=== PATIENT | female | born 1940 | race Caucasian/White ===

== ENCOUNTER → 2017-01-02 | Outpatient (CLI) | payer MEDICARE, BC ==
[2017-01-02 12:31] LABS: EKG EKG PERFORMED
[2017-01-02 13:32] LABS: ALT 24 U/L (9-52); AST 31 U/L (14-36); Alkaline Phosphatase 86 U/L (38-126); Anion Gap 14 mmol/L; Blood Urea Nitrogen 18 mg/dL (7-17); Calcium 9.9 mg/dL (8.4-10.2); Carbon Dioxide 23 mmol/L (22-30); Chloride 101 mmol/L (98-107); Glucose 111 mg/dL (74-99); Non-African American GFR(MDRD) 54 (>60 ml/min/1.73 sqM); Potassium 3.6 mmol/L (3.5-5.1); Sodium 138 mmol/L (137-145); Total Protein 7.1 g/dL (6.3-8.2)
[2017-01-02 13:37] LABS: Partial Thromboplastin Time 22.8 sec (22.0-30.0); Prothrombin Time 10.2 sec (9.0-12.0)
[2017-01-02 13:49] LABS: Basophils # (A) 0.1 k/uL (0-0.2); Basophils % (A) 1 %; CH 32.6; CHCM 31.8; Eosinophils # (A) 0.1 k/uL (0-0.7); Eosinophils % (A) 1 %; HCT 38.1 % (34.0-46.0); HDW 2.06; HGB 12.6 gm/dL (11.4-16.0); Luc # (Auto) 0.25; Luc % (Auto) 3; Lymphocytes % (A) 12 %; MCH 33.9 pg (25.0-35.0); MCV 102.8 fL (80.0-100.0); Macrocytosis Slight; Mean Platelet Volume 8.5; Monocytes # (A) 0.5 k/uL (0-1.0); Monocytes % (A) 6 %; Neutrophils # (A) 6.5 k/uL (1.3-7.7); Neutrophils % (A) 77 %; RDW 14.1 % (11.5-15.5); WBC 8.5 k/uL (3.8-10.6); WBC (Perox) 8.53
== END | disposition home or self-care (01) ==
LOC: LABPAT 12:19
PROVIDERS: ATTEND Orthopaedic Surgery
DX: Z01.812 Encounter for preprocedural laboratory examination (principal); Z01.818 Encounter for other preprocedural examination; I49.3 Ventricular premature depolarization; R94.31 Abnormal electrocardiogram [ECG] [EKG]
CPT/HCPCS: 80053; 85025; 85610; 85730; 87070; 93005

== ENCOUNTER 2017-01-15 09:45 | Inpatient (IN) | payer MEDICARE, BC ==
[2017-01-09 11:45] VITALS: BMI 21.9
[~2017-01-15 09:45] MED LIST: ACETAMINOPHEN TAB 500 MG TAB PO ONE; DEXAMETHASONE SOD PHOSPHATE 10 MG/ML 1 ML VIAL IV ONE; MELOXICAM 7.5 MG TAB PO ONE; TRANEXAMIC ACID 1,000 MG in SODIUM CHLORIDE 0.9% 100 ML IVPB ONE; ceFAZolin 2 GM in SODIUM CHLORIDE 0.9% 100 ML IVPB ONE
[2017-01-15 10:26] VITALS: RESP 16
[2017-01-15] MEDS: LACTATED RINGERS 1,000 ML IV SCH ×2 (10:32→21:11)
[2017-01-15] MEDS: ONDANSETRON 4 MG/2 ML VIAL IVP ONE ×2 (10:33→14:02)
[2017-01-15] MEDS ORDERED: LIDOCAINE 1% 20 ML VIAL (10MG/ML) FOR IV START INTRADERMA ONE (10:33)
[2017-01-15] MEDS ORDERED: NEOSTIGMINE 1 MG/ML 10 ML VIAL ONE (12:27)
[2017-01-15] MEDS ORDERED: LIDOCAINE 1% INJ 10MG/ML (20 ML MDV) ONE (12:27)
[2017-01-15] MEDS ORDERED: fentaNYL (PF) 50 MCG/ML 2 ML AMP ONE (12:27)
[2017-01-15] MEDS ORDERED: GLYCOPYRROLATE 0.2 MG/ML 2 ML VIAL ONE (12:27)
[2017-01-15] MEDS ORDERED: PROPOFOL 10 MG/ML 20 ML VIAL IV ONE (12:27)
[2017-01-15] MEDS ORDERED: PHENYLEPHRINE-0.9% NACL SYG 1 MG/10 ML SYRINGE ONE (12:27)
[2017-01-15] MEDS ORDERED: ROCURONIUM BROMIDE 10 MG/ML 10 ML VIAL IV ONE (12:27)
[2017-01-15] MEDS ORDERED: MIDAZOLAM 2 MG/2 ML VIAL ONE (12:27)
[2017-01-15] MEDS ORDERED: SUCCINYLCHOLINE CHLORIDE 100 MG/5 ML SYR IV ONE (12:27)
[2017-01-15] MEDS ORDERED: ceFAZolin 1,000 MG in SODIUM CHLORIDE 0.9% 1,000 ML IRRIGATION ONE (12:31)
[2017-01-15] MEDS ORDERED: HYDROcodone/APAP 5-325MG 1 EACH TAB PO PRN (13:30)
[2017-01-15] MEDS ORDERED: SENNOSIDES-DOCUSATE SODIUM 1 EACH TAB PO PRN (13:30)
[2017-01-15] MEDS ORDERED: ONDANSETRON 4 MG/2 ML VIAL IVP PRN (13:30)
[2017-01-15] MEDS ORDERED: HYDROmorphone 1 MG/ML 1 ML SYRINGE IVP PRN ×3 (13:30)
--- NOTE | 2017-01-15 13:46 | P.OP ---
Date of Procedure: 01/15/17 Preoperative Diagnosis: Severe osteoarthritis left shoulder Postoperative Diagnosis: Severe osteoarthritis left shoulder Procedure(s) Performed: Left shoulder hemiarthroplasty Implants: Cardona SMR Shoulder resurfacing 42mm x 11 stem The prosthesis was press fit Anesthesia: NGOC Surgeon: Marlon Connolly [employer] Agent #1: Jennifer Rubio [employer] Agent #2: Jennifer Boyd Estimated Blood Loss (ml): 150 Pathology: other (Bone and cartilage) Condition: stable Disposition: PACU Indications for Procedure: This is a 76-year-old female who presented to my office with pain in her left shoulder secondary to severe osteoarthritis. She has failed conservative treatment and wishes to proceed with operative treatment for her pain. We discussed the surgical treatment options including hemiarthroplasty of the shoulder, total shoulder arthroplasty, and reverse shoulder arthroplasty. Due to her age, level of activity, and chronic lymphedema of her left upper extremity, I have recommended a hemiarthroplasty of her shoulder. She is agreeable to this and knows the limitations of this procedure. I did discuss the possibility of a total shoulder replacement if the arthritis on the glenoid was more severe than initially thought. Informed consent was obtained. Operative Findings: The operative findings are consistent with severe osteoarthritis of the left shoulder Description of Procedure: The patient was seen in the preoperative area, consent was reviewed, and operative site was marked with a skin marker. Patient was then brought to the operating room and given preoperative antibiotics intravenously. Patient was also given 1 g of Tranexamic acid intravenously. A general anesthetic was administered by the anesthesia department. The patient was then placed in a beachchair position with the bony prominences well-padded and the head secured. The shoulder was then prepped and draped in the usual sterile fashion. A universal timeout was then performed, which confirmed the patient's name, surgical site, ALLERGIES, and consent. A standard deltopectoral approach was performed. The skin and subcutaneous tissue was sharply dissected down to the deltoid fascia. The cephalic vein was then identified and retracted medially. The deltopectoral interval was then utilized to expose the subscapularis tendon. A retractor was then placed under the coracobrachialis tendon retracted medially, and the deltoid. The axillary nerve is palpated and protected throughout the procedure. The subscapularis tendon was then released and retracted medially. The humeral head was then exposed easily. After the humeral head was exposed, osteophytes were removed with a Ronguer. The glenoid was inspected and found to have moderate arthrosis , so I elected to proceed with a hemiarthroplasty procedure. The sizing guides were placed over the humeral head and after the appropriate size was determined, central pin was placed. The humeral head was then reamed. Next, a central hole was then drilled. The trial was then placed and found to have a secure fit. The trial was then removed, and the final implant was impacted. Shoulder was then reduced, taken through full range of motion and found to be stable. Shoulder was then irrigated with pulsatile lavage. The shoulder was then irrigated with Irrisept solution. A second dose of 1 g of Tranexamic acid was given. The subscapularis was then repaired with #1 Vicryl. The deltopectoral interval was then closed with #1 Vicryl as well. The subcutaneous tissues were closed with 2-0 Vicryl then Dermabond was placed on the skin. A sterile dressing was then applied, the patient was transported to the recovery room in an arm sling in stable condition. The legal support assistant Jennifer Rubio required due the complexity of the surgery and the need for a skilled surgical scheduler.
[2017-01-15] MEDS: HYDROmorphone 1 MG/ML 1 ML SYRINGE IVP PRN ×2 (14:02→14:16)
--- NOTE | 2017-01-15 14:30 | XR ---
EXAMINATION TYPE: XR shoulder limited LT DATE OF EXAM: 01/15/2017 2:11 PM COMPARISON: NONE HISTORY: Left shoulder replacement TECHNIQUE: Single AP view left shoulder FINDINGS: Left humeral head is been placed. Glenoid appears intact. Acromioclavicular junction appear s within normal limits. No acute fractures are evident. Surgical clips are within the axillary region . IMPRESSION: 1. No acute fractures post humeral head replacement
[2017-01-15] MEDS ORDERED: KETOROLAC 30 MG/ML 1 ML VIAL IVP ONE (14:35)
[2017-01-15 16:02] LABS: Basophils % (A) 0 %; CH 32.7; CHCM 30.6; Eosinophils % (A) 0 %; HCT 38.2 % (34.0-46.0); HDW 1.93; HGB 11.8 gm/dL (11.4-16.0); Luc # (Auto) 0.11; Luc % (Auto) 1; Lymphocytes # (A) 0.7 k/uL (1.0-4.8); Lymphocytes % (A) 8 %; MCH 32.9 pg (25.0-35.0); MCHC 30.8 g/dL (31.0-37.0); MCV 106.9 fL (80.0-100.0); Macrocytosis Moderate; Mean Platelet Volume 8.7; Monocytes # (A) 0.2 k/uL (0-1.0); Monocytes % (A) 2 %; Neutrophils # (A) 7.8 k/uL (1.3-7.7); Neutrophils % (A) 89 %; RBC 3.57 m/uL (3.80-5.40); RDW 13.8 % (11.5-15.5); WBC 8.9 k/uL (3.8-10.6); WBC (Perox) 9.59
[2017-01-15] MEDS: SODIUM CHLORIDE 0.9% 1,000 ML IV SCH (16:08)
[2017-01-15] MEDS: HYDROcodone/APAP 5-325MG 1 EACH TAB PO PRN (18:11)
[2017-01-15] MEDS: ceFAZolin 2 GM in SODIUM CHLORIDE 0.9% 100 ML IVPB SCH (20:08)
[2017-01-15] MEDS ORDERED: ALPRAZolam 0.5 MG TAB PO PRN (20:53)
[2017-01-15] MEDS ORDERED: PRAVASTATIN SODIUM 40 MG TAB PO SCH (21:00)
[2017-01-16] MEDS: SODIUM CHLORIDE 0.9% 1,000 ML IV SCH (05:54)
[2017-01-16] MEDS: ceFAZolin 2 GM in SODIUM CHLORIDE 0.9% 100 ML IVPB SCH (05:54)
[2017-01-16] MEDS ORDERED: LEVOTHYROXINE 75 MCG TAB PO SCH (06:30)
[2017-01-16] MEDS ORDERED: PANTOPRAZOLE 40 MG TABLET PO SCH (07:30)
--- NOTE | 2017-01-16 08:14 | P.DS ---
Providers Date of admission: 01/15/17 10:02 Expected date of discharge: 01/16/17 Attending physician: Marlon Connolly Consults: 01/15/17 13:30 Consult Physician Routine Consulting Provider: Tracie Brambila Consult Reason/Comments: medical management Do you want consulting provider notified?: Yes Primary care physician: Stated None - Discharge Diagnosis(es) (1) Primary osteoarthritis, left shoulder Current Visit: Yes Status: Acute Hospital Course: This is a 76-year-old female with history of left shoulder pain. She has known severe Ostreoarthritis of the left shoulder. After discussion and consideration the patient elected to proceed with surgical intervention. The patient was seen preoperatively medically cleared for surgery by Dr. Brambila. Patient was admitted to [facility] on 01/15/2017 and underwent hemiarthroplasty of the left shoulder. The procedure was performed without competitions or sequelae. The patient was seen and evaluated at bedside with Dr. Marlon Connolly on postoperative day #1. She has no new complaints at this time. Her pain is well-controlled. Dressing is clean dry and intact. This was changed at bedside. Dermabond tape intact. No erythema or drainage. She has good active range of motion at the wrist and fingers. She denies any numbness or tingling. Sensation and circulatory status was intact. The patient is orthopedically stable for discharge to home today. Pertinent Studies: Laboratory Tests 01/15/17 14:57 WBC 8.9 RBC 3.57 L Hgb 11.8 Hct 38.2 Patient Condition at Discharge: Good Plan - Discharge Summary New Discharge Prescriptions: Hydrocodone/Acetaminophen [[place] 5-325] 1 - 2 each PO Q6HR PRN #90 tab PRN Reason: Pain Sennosides-Docusate Sodium [Senokot-S] 2 tab PO DAILY #60 tablet Discharge Medication List ALPRAZolam [Xanax] 0.5 mg PO HS PRN 01/09/17 [History] Aspirin [Adult Low Dose Aspirin EC] 81 mg PO DAILY 01/09/17 [History] Cholecalciferol [Vitamin D3] 1,000 unit PO DAILY 01/09/17 [History] HYDROcodone/APAP 7.5-325MG [[place] 7.5-325] 1 tab PO Q4-6H PRN 01/09/17 [History] Levothyroxine Sodium [Synthroid] 75 mcg PO DAILY 01/09/17 [History] Losartan/Hydrochlorothiazide [Losartan-Hctz 100-25 mg Tab] 1 tab PO DAILY [History] Omeprazole 20 mg PO DAILY 01/09/17 [History] Pravastatin Sodium [Pravachol] 40 mg PO HS 01/09/17 [History] amLODIPine BESYLATE [Norvasc] 2.5 mg PO DAILY 01/09/17 [History] Hydrocodone/Acetaminophen [[place] 5-325] 1 - 2 each PO Q6HR PRN #90 tab 01/16/17 [Rx] Sennosides-Docusate Sodium [Senokot-S] 2 tab PO DAILY #60 tablet 01/16/17 [Rx] Follow up Appointment(s)/Referral(s): Marlon Connolly DO [Doctor of Osteopathic Medicine] - 2 Weeks Activity/Diet/Wound Care/Special Instructions: Ice to left shoulder Daily dressing changes. Okay to shower after 2 days without drainage Sling for comfort [facility] with questions or concerns [phone]
[2017-01-16] MEDS ORDERED: CHOLECALCIFEROL 1,000 UNIT TAB PO SCH (09:00)
[2017-01-16] MEDS ORDERED: LOSARTAN-HCTZ 50-12.5 MG 1 EACH TAB PO SCH (09:00)
[2017-01-16] MEDS ORDERED: amLODIPine 2.5 MG TAB PO SCH (09:00)
[2017-01-16] MEDS ORDERED: ASPIRIN 81 MG CHEW PO SCH (09:00)
[2017-01-16] MEDS: HYDROcodone/APAP 5-325MG 1 EACH TAB PO PRN (13:21)
[2017-01-16 15:03] VITALS: BP 96/53; PULSE 81; TEMP 98.7
== END 2017-01-16 16:35 | disposition home or self-care (01) | DRG 483 ==
LOC: 2ORMAIN 10:02 → 3SUR 13:45
PROVIDERS: ADMIT Orthopaedic Surgery; ATTEND Orthopaedic Surgery
PROC: 0RRK0JZ Replacement of Left Shoulder Joint with Synthetic Substitute, Open Approach (ICD-10-PCS; principal; 2017-01-15 11:45)
DX: M19.012 Primary osteoarthritis, left shoulder (principal); I10 Essential (primary) hypertension; Z79.82 Long term (current) use of aspirin; Z79.899 Other long term (current) drug therapy; E78.5 Hyperlipidemia, unspecified; Z88.1 Allergy status to other antibiotic agents; Z88.8 Allergy status to other drugs, medicaments and biological substances
CPT/HCPCS: 85025

== ENCOUNTER 2017-05-08 06:29 | Day surgery (SDC) | payer MEDICARE, BC ==
[2017-04-30 10:49] VITALS: BMI 20.9
[~2017-05-08 06:29] MED LIST changes: -ACETAMINOPHEN TAB 500 MG TAB PO ONE; -DEXAMETHASONE SOD PHOSPHATE 10 MG/ML 1 ML VIAL IV ONE; +LACTATED RINGERS 1,000 ML IV SCH; +LIDOCAINE 1% 20 ML VIAL (10MG/ML) FOR IV START INTRADERMA PRN; -MELOXICAM 7.5 MG TAB PO ONE; +TETRACAINE 0.5% OPHTH (PF) DROPS 4 ML BTL OP ONE; +TIMOLOL 0.5% OPHTH SOLN (PF) 0.2 ML DROPERETTE OP ONE; -TRANEXAMIC ACID 1,000 MG in SODIUM CHLORIDE 0.9% 100 ML IVPB ONE; -ceFAZolin 2 GM in SODIUM CHLORIDE 0.9% 100 ML IVPB ONE
[2017-05-08 06:49] VITALS: RESP 16; TEMP 97.7
[2017-05-08] MEDS: PHENYLEPHRINE 2.5% OPHTH DRP 2ML OP NR ×3 (06:55→07:10)
[2017-05-08] MEDS: CYCLOPENTOLATE 1% OPHTH SOLN 2 ML BTL OP ONE ×3 (06:59→07:13)
[2017-05-08] MEDS ORDERED: fentaNYL (PF) 50 MCG/ML 2 ML AMP ONE (07:36)
[2017-05-08] MEDS ORDERED: MIDAZOLAM 2 MG/2 ML VIAL ONE (07:36)
[2017-05-08] MEDS ORDERED: MOXIFLOXACIN HCL 0.5% DROPS 3 ML BTL OP ONE (07:45)
[2017-05-08] MEDS ORDERED: LIDOCAINE 1% (PF) 10MG/ML VIAL MISCELLANE ONE (07:52)
[2017-05-08] MEDS ORDERED: DUOVISC KIT (GREEN BOX) INTRAOCULA ONE (07:52)
[2017-05-08] MEDS ORDERED: BALANCED SALT IRRIG SOLN COMB2 15 ML IRRIG.SOLN INTRAOCULA ONE (07:52)
[2017-05-08] MEDS ORDERED: EPINEPHrine (PF) 0.3 ML in BALANCED SALT IRRIG SOLN COMB2 500 ML IRRIGATION ONE (07:54)
--- NOTE | 2017-05-08 08:11 | P.OP ---
Date of Procedure: 05/08/17 Preoperative Diagnosis: NS Postoperative Diagnosis: same Procedure(s) Performed: PIOL, OD Implants: PCB00 23.0 Anesthesia: MAC Surgeon: Tucker Duval Estimated Blood Loss (ml): 0 Pathology: none sent Condition: stable Disposition: same day Indications for Procedure: blurry vision Operative Findings: No complications Description of Procedure:
[2017-05-08 08:37] VITALS: BP 152/67; PULSE 100
--- NOTE | 2017-05-09 09:06 | OP ---
DATE OF SURGERY: 05/08/17 PREOPERATIVE DIAGNOSIS: Nuclear sclerosis. POSTOPERATIVE DIAGNOSIS: Nuclear sclerosis. OPERATION: Clear cornea phacoemulsification of cataract and intraocular lens implant of the right eye. ESTIMATED BLOOD LOSS: Zero. SPECIMEN TAKEN: None. NARRATIVE: After obtaining the appropriate consent, the patient was brought to the Operating Room where the patient was placed under cardiac monitoring and prepped and draped in the usual sterile manner. At the 11 oclock position, a 15 degree super sharp blade was used to create a paracentesis followed by instillation of 1% Xylocaine MPF 50:50 mix with BSS into the anterior chamber. This was followed by Duovisc to stabilize the anterior chamber. At the 9 o clock position position, a self sealing corneal flap incision was created using 2.8 mm starla keratome. A cystatome was used to initiate a continuous tear capsulorrhexis which was completed with the Utrata forceps. A Binkhorst cannula was used to hydrodissect the lens nucleus followed by hydrodelineation. Phacoemulsification of the lens was performed utilizing phacochop in 1 minute and 2 seconds at 15% power. The remaining cortical material was removed using the irrigation aspiration mode followed by additional 1% Xylocaine MPF into the anterior chamber followed by viscoelastic to stabilize the capsular bag. An JOE PZB 00 23.0 diopter posterior chamber lens was placed into the capsular bag without difficulty. The remaining viscoelastic material was removed from the anterior chamber with the irrigation/aspiration. Balanced salt solution was used to normalize the intraocular pressure. The incision was checked for watertight integrity. The patient then received two drops of 0.5% Timolol followed by two drops of Vigamox, was lightly patched and shielded in the usual manner. There were no complications from the procedure. The patient tolerated the procedure well and was returned to the recovery room in good condition. MALLORY
== END 2017-05-08 09:14 | disposition home or self-care (01) ==
LOC: OR 06:29
PROVIDERS: ATTEND Ophthalmology
DX: H25.11 Age-related nuclear cataract, right eye (principal); H52.4 Presbyopia; I10 Essential (primary) hypertension; I25.10 Atherosclerotic heart disease of native coronary artery without angina pectoris; Z91.041 Radiographic dye allergy status; Z79.82 Long term (current) use of aspirin; Z79.899 Other long term (current) drug therapy; K21.9 Gastro-esophageal reflux disease without esophagitis
CPT/HCPCS: 66984; C1780; J2250; J0171; J3010; J2001

== ENCOUNTER → 2018-03-26 | Outpatient (CLI) | payer MEDICARE, BC ==
[2018-03-26 15:05] LABS: HGB 13.5 gm/dL (11.4-16.0); MCH 31.5 pg (25.0-35.0); MCHC 32.2 g/dL (31.0-37.0); MCV 97.8 fL (80.0-100.0); Mean Platelet Volume 7.7; Platelet Count 269 k/uL (150-450); RDW 13.5 % (11.5-15.5); WBC 10.6 k/uL (3.8-10.6)
[2018-03-26 15:13] LABS: Partial Thromboplastin Time 22.5 sec (22.0-30.0); Prothrombin Time 9.6 sec (9.0-12.0)
[2018-03-26 15:22] LABS: Albumin 4.5 g/dL (3.5-5.0); Calcium 9.9 mg/dL (8.4-10.2); Potassium 3.6 mmol/L (3.5-5.1); Total Bilirubin 0.8 mg/dL (0.2-1.3)
== END | disposition home or self-care (01) ==
LOC: LABPAT 13:08
PROVIDERS: ATTEND Orthopaedic Surgery
DX: Z01.812 Encounter for preprocedural laboratory examination (principal); Z79.01 Long term (current) use of anticoagulants
CPT/HCPCS: 36415; 80053; 85027; 85610; 85730; 87070

== ENCOUNTER 2018-04-07 05:37 | Inpatient (IN) | payer MEDICARE, BC ==
[2018-03-25 10:47] VITALS: BMI 19.5
[~2018-04-07 05:37] MED LIST changes: +ACETAMINOPHEN TAB 500 MG TAB PO ONE; -LACTATED RINGERS 1,000 ML IV SCH; -LIDOCAINE 1% 20 ML VIAL (10MG/ML) FOR IV START INTRADERMA PRN; +MELOXICAM 7.5 MG TAB PO ONE; +MIDAZOLAM 2 MG/2 ML VIAL IV PRN; +ONDANSETRON 4 MG/2 ML VIAL IVP ONE; -TETRACAINE 0.5% OPHTH (PF) DROPS 4 ML BTL OP ONE; -TIMOLOL 0.5% OPHTH SOLN (PF) 0.2 ML DROPERETTE OP ONE; +TRANEXAMIC ACID 1,000 MG in SODIUM CHLORIDE 0.9% 50 ML IVPB ONE; +ceFAZolin IN SWFI 2 GM/20 ML SYRINGE IVP ONE; +fentaNYL (PF) 50 MCG/ML 2 ML AMP IV PRN
[2018-04-07] MEDS ORDERED: ROPIVACAINE 246.25 MG, EPINEPHrine 0.5 MG, KETOROLAC 30 MG, cloNIDine HCL/PF 80 MCG, WA... MISCELLANE ONE ×5 (06:37)
[2018-04-07] MEDS ORDERED: LIDOCAINE 1% 20 ML VIAL (10MG/ML) FOR IV START INTRADERMA ONE (06:39)
[2018-04-07] MEDS ORDERED: NALOXONE 0.4 MG/ML 1 ML VIAL IV PRN (07:28)
[2018-04-07] MEDS ORDERED: DIAZEPAM 5 MG TAB PO PRN (07:28)
[2018-04-07] MEDS ORDERED: ONDANSETRON 4 MG/2 ML VIAL IVP PRN (07:28)
[2018-04-07] MEDS: LACTATED RINGERS 1,000 ML IV SCH (07:28)
[2018-04-07] MEDS ORDERED: HYDROmorphone 0.5 MG/0.5 ML SYRINGE IVP PRN ×3 (07:28)
[2018-04-07] MEDS ORDERED: MAGNESIUM HYDROXIDE 2,400 MG/10 ML CUP PO PRN (07:28)
[2018-04-07] MEDS ORDERED: PHENYLEPHRINE-0.9% NACL SYG 1 MG/10 ML SYRINGE ONE (07:30)
[2018-04-07] MEDS ORDERED: SODIUM CHLORIDE 0.9% IRRIG 1,000 ML BTL IRRIGATION ONE (07:30)
[2018-04-07] MEDS ORDERED: TRANEXAMIC ACID 1,000 MG/10 ML VIAL ONE (07:30)
[2018-04-07] MEDS ORDERED: HEPARIN SODIUM,PORCINE 10,000 UNIT/ML 1 ML VIAL ONE (07:30)
[2018-04-07] MEDS ORDERED: MIDAZOLAM 2 MG/2 ML VIAL ONE (07:30)
[2018-04-07] MEDS ORDERED: SODIUM CHLORIDE 0.9% 100 ML BAG ONE (07:30)
[2018-04-07] MEDS ORDERED: fentaNYL (PF) 50 MCG/ML 2 ML AMP ONE (07:30)
[2018-04-07] MEDS ORDERED: PROPOFOL 10 MG/ML 20 ML VIAL IV ONE (07:30)
[2018-04-07] MEDS ORDERED: ceFAZolin 3,000 MG in SODIUM CHLORIDE 0.9% IRRIGATIO 3,000 ML IRRIGATION ONE (08:14)
--- NOTE | 2018-04-07 09:04 | P.OP ---
Date of Procedure: 04/07/18 Preoperative Diagnosis: Severe osteoarthritis right hip Postoperative Diagnosis: Severe osteoarthritis right hip Procedure(s) Performed: Right total hip arthroplasty with a direct anterior approach Implants: Francois and nephew Polarstem size 5 standard Francois [employer] Nephew R3, 3 hole acetabular shell, 48 mm Francois & Nephew reflection 6.5 mm cancellus screw, 20 mm 2 Francois [employer] Nephew R3, XLPE 20 acetabular liner Francois & Nephew Oxinium femoral head 32 m, +8 All components were press-fit. The articulation is Oxinium on polyethylene. Anesthesia: spinal Surgeon: Marlon Connolly Faculty Member #1: Jennifer Odom Estimated Blood Loss (ml): 125 Pathology: other (Femoral head) Condition: stable Disposition: PACU Indications for Procedure: After failure of conservative treatment we discussed the surgical and nonsurgical treatment options at length. Patient wishes to proceed with a total hip arthroplasty with a direct anterior approach. Complications specific to this procedure were discussed at length, including but not limited to infection, leg length discrepancy, dislocation, and nerve injury. Patient is aware of all these complications and informed consent was obtained Operative Findings: The operative findings are consistent with severe osteoarthritis of the right hip Description of Procedure: Patient was seen and evaluated in the preoperative area, consent was reviewed, and the surgical site was marked with a skin marker. Patient was then brought to the operating room and given prophylactic antibiotics intravenously. 1 g of Tranexamic acid was also given. A spinal anesthetic was administered by the anesthesia department. The patient was then placed on the [place] table with the bony prominences well-padded. The hip area was then prepped and draped in usual sterile fashion. A universal timeout was then performed, which confirmed the patient's name, surgical site, ALLERGIES, and procedure being performed. Next the incision site was located at 1 cm distal and 1 cm lateral to the anterior superior iliac spine. The skin and subcutaneous tissues were sharply incised. Incision was carefully dissected down to the fascia overlying the tensor fascia lisbeth muscle. This fascia was then incised in line with the incision. Next, using blunt finger dissection, the tensor fascia lisbeth muscle was dissected off its investing fascia. The muscle was then carefully retracted laterally with a cobra retractor over the lateral neck of the femur. Next, the circumflex vessels were identified and cauterized using the AquaMantis device. The anterior hip capsule was then exposed. The capsule was then opened and an inverted T fashion. Cobra retractors were then placed intracapsularly. The proximal femur was then visualized. The femoral neck was then osteotomized appropriate level above the lesser trochanter. Small amount of traction was placed with the [place] table. A small wedge of bone was then removed from the remaining femoral head. Next, using a corkscrew femoral head was easily removed from the acetabulum. On gross visual inspection, the femoral head had complete loss of articular cartilage in multiple periarticular osteophytes. Attention was then turned to the acetabulum. the acetabulum was exposed and any remaining labrum was excised. Sequential reaming of the acetabulum was performed using fluoroscopic guidance. When the appropriate size was reached, a trial was then placed. The position and fit of the trial was checked with fluoroscopy. The trial was then removed. Then, using fluoroscopic guidance, the final implant was impacted at 20 of anteversion and 40 of abduction, and fully seated in the acetabulum. 2 screws were then placed in the acetabulum. Again fluoroscopy was used to check position of the screws. Next, the liner was then impacted, with a 20 elevated liner located in the anterior superior quadrant. Component locking was confirmed. Attention was then directed to the femur. With the aid of the [place] table, the femur was externally rotated to approximately 130, extended, and abducted under the opposite leg. A side hook was then placed under the proximal femur, and the side hook elevator was used to elevate the proximal femur. Retractors were then placed. A capsular release was performed, as well as a release of the conjoined tendon, which afforded excellent visualization of the proximal femur. Next, a box osteotome was used to lateralize the proximal femur. A dredge deckhand was then used to locate the femoral canal. Sequential broaching was then performed with appropriate size which afforded excellent fixation in the proximal femur. A trial was then placed with appropriate head and neck, and the hip was gently reduced with the aid of the [place] table. Fluoroscopy was then used to check position of the components, as well as to ensure equal leg lengths. The hip was then gently dislocated and the trials were then removed. Final implants were then impacted and the hip was again reduced. Final fluoroscopic x-rays confirmed that the components were in anatomic position, as well as equal leg lengths. The hip was also taken through range of motion, and found to be stable. The hip was then copiously irrigated with antibiotic solution with pulsatile lavage. The hip was then irrigated with Irrisept solution. The soft tissues were then injected with a ropivacaine solution, which consisted of 246.25 mg of ropivacaine, 0.5 mg of epinephrine, 30 mg of Toradol, 80 g of clonidine, and 48.45 mL of sterile water, for a total of 100 mL of fluid injected. A second dose of 1 g of Tranexamic acid was also given. the fascia was then closed with 2-0 strata fix suture. The subcutaneous tissue was closed with 3-0 Vicryl. The subcuticular tissue was closed with 3-0 strata fix suture. The skin was then closed with Dermabond glue and a sterile silver dressing. The patient was then transferred to the recovery room in stable condition. The recreational assistant NOÉ Cai was required due to the complexity of surgery, and the need for skilled surgical clinical reviewer for positioning, draping, exposure, retraction, and closure of the wound.
--- NOTE | 2018-04-07 09:15 | FL ---
EXAMINATION TYPE: FL guidance operating room, XR Hip Limited RT DATE OF EXAM: 04/07/2018 CLINICAL HISTORY: Right hip arthroplasty TECHNIQUE: Fluoroscopy. COMPARISON: None. FINDINGS/IMPRESSION: Fluoroscopic guidance was provided during procedure performed by Dr. Connolly. A total of 31 seconds of fluoroscopic time was utilized during the procedure and 2 spot images was a cquired during right hip arthroplasty.
[2018-04-07] MEDS: SODIUM CHLORIDE 0.9% 1,000 ML IV SCH ×2 (09:51→23:24)
--- NOTE | 2018-04-07 10:45 | XR ---
EXAMINATION TYPE: FL guidance operating room, XR Hip Limited RT DATE OF EXAM: 04/07/2018 CLINICAL HISTORY: Right hip arthroplasty TECHNIQUE: Fluoroscopy. COMPARISON: None. FINDINGS/IMPRESSION: Fluoroscopic guidance was provided during procedure performed by Dr. Connolly. A total of 31 seconds of fluoroscopic time was utilized during the procedure and 2 spot images was a cquired during right hip arthroplasty. Right hip arthroplasty appears in normal anatomic alignment wi th overlying soft tissue swelling and subcutaneous emphysema.
--- NOTE | 2018-04-07 11:09 | P.CONS ---
History of Present Illness - Reason for Consult Consult date: 04/07/18 medical management Requesting physician: Jennifer Odom - Chief Complaint Osteoarthritis of the right hip - History of Present Illness This is an 78-year-old female patient of Dr. Brambila. Patient has a significant history of osteoarthritis of the right hip and underwent a right total hip arthroplasty with a direct anterior approach with Dr. Connolly today. Patient has a significant history of left breast cancer with chemo and radiation 15 years ago, GERD, hyperlipidemia, hypertension, osteoarthritis and thyroid disorder. Patient is currently resting comfortably in bed with minimal pain complaints at this time. Blood pressure currently running on the lower side with Systolic blood pressure in t the 90s and low 100s . Patient currently on room air with no completes the shortness of breath. Patient denies any chest pain. She denies any urinary symptoms, fever, chills, nausea, vomiting or diarrhea at this time. Med rec reviewed with patient. Will hold blood pressure medications at this time due to low blood pressure. Review of Systems Otherwise unremarkable please see HPI Past Medical History Past Medical History: Cancer, GERD/Reflux, Hyperlipidemia, Hypertension, Osteoarthritis (OA), Skin Disorder, Thyroid Disorder Additional Past Medical History / Comment(s): HX OF LEFT BREAST CANCER WITH CHEMO AND RADIATION (15 YRS AGO)., ECZEMA, LEAKY HEART VALVES, HX OF COLITIS, BACK PAIN, RIGHT HIP AND GROIN PAIN, STATES LYMPHEDEMA LEFT ARM-NO IV'S, LAB DRAWS OR BLOODPRESSURES LEFT ARM., History of Any Multi-Drug Resistant Organisms: None Reported Past Surgical History: Adenoidectomy, Appendectomy, Joint Replacement, Tonsillectomy, Tubal Ligation Additional Past Surgical History / Comment(s): LYMPH NODES LEFT AXILLA. ; L shoulder Past Anesthesia/Blood Transfusion Reactions: Motion Sickness, Postoperative Nausea & Vomiting (PONV) Additional Past Anesthesia/Blood Transfusion Reaction / Comm: PT ADOPTED-NO FAMILY HX AVAILABLE. Smoking Status: Never smoker - Past Family History Mother Family Medical History: Unable to Obtain Additional Family Medical History / Comment(s): PT ADOPTED. Medications and Allergies Home Medications Medication Instructions Recorded Confirmed Type ALPRAZolam [Xanax] 0.5 mg PO HS PRN 01/09/17 04/07/18 History Aspirin [Adult Low Dose Aspirin EC] 81 mg PO DAILY 01/09/17 04/07/18 History Cholecalciferol [Vitamin D3] 1,000 unit PO DAILY 01/09/17 04/07/18 History Levothyroxine Sodium [Synthroid] 75 mcg PO DAILY 01/09/17 04/07/18 History Losartan/Hydrochlorothiazide 1 tab PO DAILY 01/09/17 04/07/18 History [Losartan-Hctz 100-25 mg Tab] Omeprazole 20 mg PO DAILY 01/09/17 04/07/18 History Pravastatin Sodium [Pravachol] 40 mg PO HS 01/09/17 04/07/18 History amLODIPine BESYLATE [Norvasc] 5 mg PO BID 01/09/17 04/07/18 History HYDROcodone/APAP 5-325MG [[place] 1 tab PO Q4HR PRN 03/25/18 04/07/18 History 5-325] Allergies Allergy/AdvReac Type Severity Reaction Status Date / Time iodine Allergy Severe STATES Verified 04/07/18 08:02 CARDIAC EMERGENCY lactose Allergy Unknown Diarrhea Verified 04/07/18 08:02 levofloxacin Allergy Unknown RED AND Verified 04/07/18 08:02 SWELLING AT IV SITE. Physical Exam Vitals: Vital Signs Temp Pulse Resp BP Pulse Ox 04/07/18 10:00 91 18 103/59 100 04/07/18 09:45 88 18 99/55 100 04/07/18 09:30 105 H 18 97/53 98 04/07/18 09:12 97.1 F L 116 H 20 89/51 97 04/07/18 06:05 97.8 F 92 16 136/77 100 Intake and Output 04/06/18 04/07/18 04/07/18 22:59 06:59 14:59 Intake Total 1051 Output Total 125 Balance 926 Intake: IV 1051 Output: Estimated Blood Loss 125 Head normocephalic Neck supple Lungs clear to auscultation bilaterally no wheezing or crackles Heart regular rate and rhythm S1-S2, no rub or gallop Abdomen is soft nontender nondistended positive bowel sounds no hepatosplenomegaly Extremities no edema. Right hip dressing clean, dry and intact. Neuro alert and orientated to 3 Assessment and Plan Assessment: 1. Severe osteoarthritis the right hip. Status post right total hip arthroplasty with a direct anterior approach with Dr. Connolly. Currently on aspirin 325 mg by mouth twice a day per surgical services. Pain management with [place] and Dilaudid. 2. History of breast cancer 3. History of hypothyroidism. Home medication resumed 4. History of hypertension. Patient's home Norvasc and losartan/ hydrochlorothiazide currently on hold due to patient having low blood pressure postoperatively 5. History of hyperlipidemia. Home medication Pravastatin resumed Thank you for this consultation we'll continue to manage patient throughout hospital stay. Time with Patient: Greater than 30 (Greater than 60% of the total time spent in counseling and coordination of care. I performed an examination of the patient and discussed their management with the Nurse Practitioner. I have reviewed the Nurse Practitioner's notes and agree with the documented findings and plan of care)
[2018-04-07] MEDS: HYDROcodone/APAP 5-325MG 1 EACH TAB PO PRN ×2 (11:17→17:35)
[2018-04-07 11:42] LABS: Calcium 9.2 mg/dL (8.4-10.2); Potassium 3.7 mmol/L (3.5-5.1)
[2018-04-07 11:54] LABS: Basophils % (A) 0 %; Eosinophils # (A) 0.3 k/uL (0-0.7); Eosinophils % (A) 3 %; HCT 34.3 % (34.0-46.0); HGB 11.8 gm/dL (11.4-16.0); Lymphocytes # (A) 1.8 k/uL (1.0-4.8); Lymphocytes % (A) 17 %; MCH 32.2 pg (25.0-35.0); MCHC 34.3 g/dL (31.0-37.0); MCV 93.9 fL (80.0-100.0); Mean Platelet Volume 7.9; Monocytes # (A) 0.6 k/uL (0-1.0); Monocytes % (A) 6 %; Neutrophils # (A) 7.6 k/uL (1.3-7.7); Neutrophils % (A) 72 %; Platelet Count 176 k/uL (150-450); RBC 3.66 m/uL (3.80-5.40); WBC 10.6 k/uL (3.8-10.6)
[2018-04-07] MEDS: ceFAZolin IN SWFI 2 GM/20 ML SYRINGE IVP SCH ×2 (16:31→23:19)
[2018-04-07] MEDS: SENNOSIDES-DOCUSATE SODIUM 1 EACH TAB PO SCH (21:06)
[2018-04-07] MEDS: PRAVASTATIN SODIUM 40 MG TAB PO SCH (21:06)
[2018-04-07] MEDS: ASPIRIN 325 MG TAB PO SCH (21:42)
[2018-04-08] MEDS: LACTATED RINGERS 1,000 ML IV SCH (04:24)
[2018-04-08] MEDS: HYDROcodone/APAP 5-325MG 1 EACH TAB PO PRN ×3 (04:46→16:34)
[2018-04-08] MEDS: LEVOTHYROXINE 75 MCG TAB PO SCH (05:08)
[2018-04-08] MEDS: ASPIRIN 325 MG TAB PO SCH ×3 (07:29→20:02)
[2018-04-08] MEDS: MELOXICAM 7.5 MG TAB PO SCH ×2 (07:29→08:27)
[2018-04-08] MEDS: CHOLECALCIFEROL 1,000 UNIT TAB PO SCH ×2 (07:29→08:27)
[2018-04-08] MEDS: PANTOPRAZOLE 40 MG TABLET PO SCH ×2 (07:30→08:28)
--- NOTE | 2018-04-08 07:55 | P.PN ---
Subjective Progress Note Date: 04/08/18 This is an 78 year-old female who is status post right total hip arthroplasty. This is postoperative day #1. Patient is seen and evaluated at bedside with Dr. Marlon Connolly. Patient states that she has been up and walking with physical therapy. Patient denies any fever/chills, numbness, weakness, tingling , abdominal pain, shortness of breath or chest pain. Objective - Vital Signs Vital signs: Vital Signs Temp 98.7 F 04/08/18 07:20 Pulse 82 04/08/18 07:20 Resp 14 04/08/18 00:21 BP 113/66 04/08/18 07:20 Pulse Ox 97 04/08/18 07:20 Intake & Output 04/07/18 04/08/18 04/08/18 18:59 06:59 18:59 Intake Total 1151 540 Output Total 125 Balance 1026 540 Weight 43.091 kg Intake: IV 1051 Intake, IV Titration 100 Amount Lactated Ringers 1,000 ml 100 @ 20 mls/hr IV .Q24H SANDIP Rx#:[id number] Oral 540 Output: Estimated Blood Loss 125 Other: Voiding Method Toilet Toilet # Voids 1 1 - Exam Vital signs are stable. Patient is in no acute distress and is alert and oriented 3. Calf is soft and nontender to palpation. Dressing is clean, dry, and intact. Patient has full foot and ankle motion without pain or difficulty. Neurovascular status and circulatory status are intact. - Labs CBC & Chem 7: 04/07/18 11:07 04/07/18 11:07 Labs: Abnormal Lab Results - Last 24 Hours (Table) 04/07/18 04/07/18 Range/Units 11:07 11:07 RBC 3.66 L (3.80-5.40) m/uL Sodium 134 L (137-145) mmol/L Carbon Dioxide 21 L (22-30) mmol/L BUN 22 H (7-17) mg/dL Glucose 115 H (74-99) mg/dL Assessment and Plan (1) Primary osteoarthritis of right hip Current Visit: Yes Status: Acute Code(s): M16.11 - UNILATERAL PRIMARY OSTEOARTHRITIS, RIGHT HIP SNOMED Code(s): 476551900 (2) S/P total hip arthroplasty Current Visit: Yes Status: Acute Code(s): Z96.649 - PRESENCE OF UNSPECIFIED ARTIFICIAL HIP JOINT SNOMED Code(s): 820252458825 Plan: Continue routine postop care. Continue antocoagulation. Weightbearing as tolerated with a walker Leave dressing in place for 10 days. Likely discharge to rehab on 04/10/2018.
[2018-04-08] MEDS: SODIUM CHLORIDE 0.9% 1,000 ML IV SCH (08:29)
[2018-04-08 09:01] LABS: Basophils # (A) 0.1 k/uL (0-0.2); Basophils % (A) 1 %; Eosinophils # (A) 0.3 k/uL (0-0.7); Eosinophils % (A) 3 %; HCT 37.2 % (34.0-46.0); HGB 12.1 gm/dL (11.4-16.0); Lymphocytes # (A) 1.6 k/uL (1.0-4.8); Lymphocytes % (A) 15 %; MCH 31.1 pg (25.0-35.0); MCHC 32.5 g/dL (31.0-37.0); MCV 95.9 fL (80.0-100.0); Mean Platelet Volume 7.8; Monocytes # (A) 0.6 k/uL (0-1.0); Monocytes % (A) 6 %; Neutrophils # (A) 8.3 k/uL (1.3-7.7); Neutrophils % (A) 75 %; Platelet Count 222 k/uL (150-450); RBC 3.88 m/uL (3.80-5.40); RDW 13.6 % (11.5-15.5); WBC 11.1 k/uL (3.8-10.6)
[2018-04-08 09:17] LABS: Calcium 8.8 mg/dL (8.4-10.2)
[2018-04-08 09:22] LABS: Potassium 5.3 mmol/L (3.5-5.1)
--- NOTE | 2018-04-08 10:13 | P.PN ---
Subjective Progress Note Date: 04/08/18 This is an 78-year-old female patient of Dr. Brambila. Patient has a significant history of osteoarthritis of the right hip and underwent a right total hip arthroplasty with a direct anterior approach with Dr. Connolly today. Patient has a significant history of left breast cancer with chemo and radiation 15 years ago, GERD, hyperlipidemia, hypertension, osteoarthritis and thyroid disorder. Patient is currently resting comfortably in bed with minimal pain complaints at this time. Blood pressure currently running on the lower side with Systolic blood pressure in t the 90s and low 100s . Patient currently on room air with no completes the shortness of breath. Patient denies any chest pain. She denies any urinary symptoms, fever, chills, nausea, vomiting or diarrhea at this time. Med rec reviewed with patient. Will hold blood pressure medications at this time due to low blood pressure. On 04/08/2018 patient currently up in chair. States that she did have some pain throughout the night but was managed well on the pain medication provided. She denies chest pain or shortness of breath at this time. Denies nausea vomiting diarrhea Objective - Vital Signs Vital signs: Vital Signs Temp 98.7 F 04/08/18 07:20 Pulse 82 04/08/18 07:20 Resp 14 04/08/18 00:21 BP 113/66 04/08/18 07:20 Pulse Ox 97 04/08/18 07:20 Intake & Output 04/07/18 04/08/18 04/08/18 18:59 06:59 18:59 Intake Total 1151 540 200 Output Total 125 Balance 1026 540 200 Weight 43.091 kg Intake: IV 1051 Intake, IV Titration 100 Amount Lactated Ringers 1,000 ml 100 @ 20 mls/hr IV .Q24H SANDIP Rx#:[id number] Oral 540 200 Output: Estimated Blood Loss 125 Other: Voiding Method Toilet Toilet # Voids 1 1 - Exam Head normocephalic Neck supple Lungs clear to auscultation bilaterally no wheezing or crackles Heart regular rate and rhythm S1-S2, no rub or gallop Abdomen is soft nontender nondistended positive bowel sounds no hepatosplenomegaly Extremities no edema. right hip dressing clean, dry and intact Neuro alert and orientated to 3 - Labs CBC & Chem 7: 04/08/18 08:19 04/08/18 08:19 Labs: Abnormal Lab Results - Last 24 Hours (Table) 04/07/18 04/07/18 04/08/18 Range/Units 11:07 11:07 08:19 WBC 11.1 H (3.8-10.6) k/uL RBC 3.66 L (3.80-5.40) m/uL Neutrophils # 8.3 H (1.3-7.7) k/uL Sodium 134 L (137-145) mmol/L Potassium (3.5-5.1) mmol/L Chloride (98-107) mmol/L Carbon Dioxide 21 L (22-30) mmol/L BUN 22 H (7-17) mg/dL Glucose 115 H (74-99) mg/dL 04/08/18 Range/Units 08:19 WBC (3.8-10.6) k/uL RBC (3.80-5.40) m/uL Neutrophils # (1.3-7.7) k/uL Sodium 135 L (137-145) mmol/L Potassium 5.3 H (3.5-5.1) mmol/L Chloride 97 L (98-107) mmol/L Carbon Dioxide (22-30) mmol/L BUN 19 H (7-17) mg/dL Glucose 117 H (74-99) mg/dL Assessment and Plan Assessment: 1. Severe osteoarthritis the right hip. Status post right total hip arthroplasty with a direct anterior approach with Dr. Connolly. Currently on aspirin 325 mg by mouth twice a day per surgical services. Pain management with [place] and Dilaudid. 2. History of breast cancer 3. History of hypothyroidism. Home medication resumed 4. History of hypertension. Patient's home Norvasc and losartan/ hydrochlorothiazide currently on hold due to patient having low blood pressure postoperatively 5. History of hyperlipidemia. Home medication Pravastatin resumed 6. Leukocytosis. WBC 11.1. Urinalysis ordered we'll continue to monitor Thank you for this consultation we'll continue to manage patient throughout hospital stay. I performed an examination of the patient and discussed their management with the Nurse Practitioner. I have reviewed the Nurse Practitioner's notes and agree with the documented findings and plan of care
[2018-04-08] MEDS ORDERED: SODIUM POLYSTYRENE SULFONATE 15 GM/60 ML BOTTLE PO STA (10:39)
[2018-04-08] MEDS ORDERED: LOSARTAN-HCTZ 50-12.5 MG 1 EACH TAB PO SCH (10:45)
[2018-04-08 14:52] LABS: Appearance,Urine Clear (Clear); Bacteria,Urine Rare /hpf; Bilirubin,Urine Negative (Negative); Blood,Urine Negative (Negative); Color,Urine Light Yellow; Glucose,Urine (UA) Negative (Negative); Ketones,Urine Negative (Negative); Leukocyte Esterase,Urine Moderate (Negative); Nitrite,Urine Negative (Negative); PH, Urine 6.5 (5.0-8.0); Protein,Urine Negative (Negative); RBC,Urine <1 /hpf (0-5); Specific Gravity,Urine 1.008 (1.001-1.035); Squamous Epithelial Cell,Urine <1 /hpf (0-4); Urobilinogen,Urine <2.0 mg/dL (<2.0); WBC,Urine 12 /hpf (0-5)
[2018-04-08] MEDS: SENNOSIDES-DOCUSATE SODIUM 1 EACH TAB PO SCH (20:02)
[2018-04-08] MEDS: PRAVASTATIN SODIUM 40 MG TAB PO SCH (20:02)
[2018-04-08] MEDS ORDERED: HYDROcodone/APAP 5-325MG 1 EACH TAB ONE (23:10)
[2018-04-09] MEDS: LACTATED RINGERS 1,000 ML IV SCH (05:11)
[2018-04-09] MEDS: LEVOTHYROXINE 75 MCG TAB PO SCH (05:12)
[2018-04-09] MEDS: SODIUM CHLORIDE 0.9% 1,000 ML IV SCH (05:12)
[2018-04-09] MEDS: ASPIRIN 325 MG TAB PO SCH ×2 (07:48→20:29)
[2018-04-09] MEDS: MELOXICAM 7.5 MG TAB PO SCH (07:49)
[2018-04-09] MEDS: PANTOPRAZOLE 40 MG TABLET PO SCH (07:49)
[2018-04-09] MEDS: CHOLECALCIFEROL 1,000 UNIT TAB PO SCH (07:49)
[2018-04-09] MEDS: HYDROcodone/APAP 5-325MG 1 EACH TAB PO PRN ×2 (07:50→13:48)
[2018-04-09 07:52] LABS: Calcium 8.7 mg/dL (8.4-10.2); Potassium 3.1 mmol/L (3.5-5.1)
--- NOTE | 2018-04-09 08:30 | P.PN ---
Subjective Progress Note Date: 04/09/18 This is an 78 year-old female who is status post right total hip arthroplasty. This is postoperative day #2. Patient is seen and evaluated at bedside with Dr. Marlon Connolly. Patient states that her pain is well controlled and she has been up and walking with physical therapy. Patient denies any new symptoms or complaints. Patient denies any fever/chills, numbness, weakness, tingling, abdominal pain, shortness of breath or chest pain. Objective - Vital Signs Vital signs: Vital Signs Temp 99.3 F 04/09/18 07:08 Pulse 87 04/09/18 07:08 Resp 14 04/09/18 07:09 BP 138/67 04/09/18 07:08 Pulse Ox 98 04/09/18 07:08 Intake & Output 04/08/18 04/09/18 04/09/18 18:59 06:59 18:59 Intake Total 680 720 Balance 680 720 Intake: Oral 680 720 Other: Voiding Method Toilet Toilet # Voids 1 1 1 - Exam Vital signs are stable. Patient is in no acute distress and is alert and oriented 3. Calf is soft and nontender to palpation. Dressing is clean, dry, and intact. Patient has full foot and ankle motion without pain or difficulty. Neurovascular status and circulatory status are intact. - Labs CBC & Chem 7: 04/08/18 08:19 04/09/18 06:42 Labs: Abnormal Lab Results - Last 24 Hours (Table) 04/08/18 04/08/18 04/08/18 Range/Units 08:19 08:19 14:30 WBC 11.1 H (3.8-10.6) k/uL Neutrophils # 8.3 H (1.3-7.7) k/uL Sodium 135 L (137-145) mmol/L Potassium 5.3 H (3.5-5.1) mmol/L Chloride 97 L (98-107) mmol/L BUN 19 H (7-17) mg/dL Glucose 117 H (74-99) mg/dL Ur Leukocyte Esterase Moderate H (Negative) Urine WBC 12 H (0-5) /hpf Urine Bacteria Rare H (None) /hpf 04/09/18 Range/Units 06:42 WBC (3.8-10.6) k/uL Neutrophils # (1.3-7.7) k/uL Sodium 136 L (137-145) mmol/L Potassium 3.1 L (3.5-5.1) mmol/L Chloride 97 L (98-107) mmol/L BUN 18 H (7-17) mg/dL Glucose (74-99) mg/dL Ur Leukocyte Esterase (Negative) Urine WBC (0-5) /hpf Urine Bacteria (None) /hpf Assessment and Plan (1) Primary osteoarthritis of right hip Current Visit: Yes Status: Acute Code(s): M16.11 - UNILATERAL PRIMARY OSTEOARTHRITIS, RIGHT HIP SNOMED Code(s): 533828017 (2) S/P total hip arthroplasty Current Visit: Yes Status: Acute Code(s): Z96.649 - PRESENCE OF UNSPECIFIED ARTIFICIAL HIP JOINT SNOMED Code(s): 167369598930 Plan: Continue routine postop care. Continue antocoagulation. Weightbearing as tolerated with a walker. Leave dressing in place for 10 days. Likely discharge to rehab on 04/10/2018.
[2018-04-09] MEDS ORDERED: POTASSIUM CHLORIDE ER 20 MEQ TAB.ER PO STA (08:46)
[2018-04-09] MEDS ORDERED: ALPRAZolam 0.5 MG TAB PO PRN (10:52)
[2018-04-09] MEDS ORDERED: Potassium Replacement Protocol 1 EACH MISC MISCELLANE PRN ×3 (13:02→19:55)
--- NOTE | 2018-04-09 13:27 | P.PN ---
Subjective Progress Note Date: 04/09/18 This is an 78-year-old female patient of Dr. Brambila. Patient has a significant history of osteoarthritis of the right hip and underwent a right total hip arthroplasty with a direct anterior approach with Dr. Connolly today. Patient has a significant history of left breast cancer with chemo and radiation 15 years ago, GERD, hyperlipidemia, hypertension, osteoarthritis and thyroid disorder. Patient is currently resting comfortably in bed with minimal pain complaints at this time. Blood pressure currently running on the lower side with Systolic blood pressure in t the 90s and low 100s . Patient currently on room air with no completes the shortness of breath. Patient denies any chest pain. She denies any urinary symptoms, fever, chills, nausea, vomiting or diarrhea at this time. Med rec reviewed with patient. Will hold blood pressure medications at this time due to low blood pressure. On 04/08/2018 patient currently up in chair. States that she did have some pain throughout the night but was managed well on the pain medication provided. She denies chest pain or shortness of breath at this time. Denies nausea vomiting diarrhea On 04/09/2018 patient is currently sitting comfortably in bed. Patient denies any shortness of breath or pain at this time. Urinary analysis did show moderate leukocyte Estrace and patient did state that a couple of weeks prior she did get treated for UTI. She did state she completed antibiotic dose. Patient denies any urinary pain or urinary urgency at this time. Urine Culture has been ordered. Patient is also having low-grade temps 99.3. White Blood cell was 11.2 yesterday. Objective - Vital Signs Vital signs: Vital Signs Temp 99.2 F 04/09/18 08:57 Pulse 87 04/09/18 07:08 Resp 14 04/09/18 07:09 BP 138/67 04/09/18 07:08 Pulse Ox 98 04/09/18 07:08 Intake & Output 04/08/18 04/09/18 04/09/18 18:59 06:59 18:59 Intake Total 680 720 Balance 680 720 Intake: Oral 680 720 Other: Voiding Method Toilet Toilet # Voids 1 1 1 - Exam Head normocephalic Neck supple Lungs clear to auscultation bilaterally no wheezing or crackles Heart regular rate and rhythm S1-S2, no rub or gallop Abdomen is soft nontender nondistended positive bowel sounds no hepatosplenomegaly Extremities no edema. right hip dressing clean, dry and intact Neuro alert and orientated to 3 - Labs CBC & Chem 7: 04/08/18 08:19 04/09/18 10:57 Labs: Abnormal Lab Results - Last 24 Hours (Table) 04/08/18 04/09/18 04/09/18 Range/Units 14:30 06:42 10:57 Sodium 136 L (137-145) mmol/L Potassium 3.1 L 3.2 L (3.5-5.1) mmol/L Chloride 97 L (98-107) mmol/L BUN 18 H (7-17) mg/dL Ur Leukocyte Esterase Moderate H (Negative) Urine WBC 12 H (0-5) /hpf Urine Bacteria Rare H (None) /hpf Assessment and Plan Assessment: 1. Severe osteoarthritis the right hip. Status post right total hip arthroplasty with a direct anterior approach with Dr. Connolly. Currently on aspirin 325 mg by mouth twice a day per surgical services. Pain management with [place] and Dilaudid. 2. History of breast cancer 3. History of hypothyroidism. Home medication resumed 4. History of hypertension. Patient's home Norvasc and losartan/ hydrochlorothiazide currently on hold due to patient having low blood pressure postoperatively 5. History of hyperlipidemia. Home medication Pravastatin resumed 6. Leukocytosis. WBC 11.1. Urinalysis ordered we'll continue to monitor. Urinalysis showing moderate leukocyte Estrace. Patient did states she previously got treated for UTI prior to surgery and completed for antibiotic course. Urine culture has been ordered. 7. Hyperkalemia patient was 5.3. Was given 1 dose of Kayexalate. Patient is now hypokalemia at 3.1. potassium replacement per protocol Anticipating discharge to [facility] tomorrow GI prophylaxis Protonix, DVT prophylaxis Aspirin I performed an examination of the patient and discussed their management with the Nurse Practitioner. I have reviewed the Nurse Practitioner's notes and agree with the documented findings and plan of care
[2018-04-09] MEDS: POTASSIUM CHLORIDE ER 20 MEQ TAB.ER PO SCH ×3 (13:32→17:12)
[2018-04-09] MEDS ORDERED: POTASSIUM CHLORIDE ER 20 MEQ TAB.ER PO ONE (20:00)
[2018-04-09] MEDS: PRAVASTATIN SODIUM 40 MG TAB PO SCH (20:29)
[2018-04-09] MEDS: SENNOSIDES-DOCUSATE SODIUM 1 EACH TAB PO SCH (20:29)
[2018-04-10] MEDS: SODIUM CHLORIDE 0.9% 1,000 ML IV SCH ×2 (01:02→13:43)
[2018-04-10] MEDS: LEVOTHYROXINE 75 MCG TAB PO SCH (05:14)
[2018-04-10] MEDS: LACTATED RINGERS 1,000 ML IV SCH (05:29)
[2018-04-10 07:17] LABS: Calcium 8.5 mg/dL (8.4-10.2); Potassium 3.8 mmol/L (3.5-5.1)
[2018-04-10 07:20] LABS: Basophils % (A) 0 %; Eosinophils # (A) 0.4 k/uL (0-0.7); Eosinophils % (A) 4 %; Lymphocytes # (A) 1.2 k/uL (1.0-4.8); Lymphocytes % (A) 13 %; MCH 31.1 pg (25.0-35.0); MCHC 32.6 g/dL (31.0-37.0); MCV 95.5 fL (80.0-100.0); Mean Platelet Volume 8.4; Monocytes # (A) 0.6 k/uL (0-1.0); Monocytes % (A) 7 %; Neutrophils # (A) 7.2 k/uL (1.3-7.7); Neutrophils % (A) 75 %; Platelet Count 154 k/uL (150-450); RBC 3.04 m/uL (3.80-5.40); RDW 13.4 % (11.5-15.5); WBC 9.6 k/uL (3.8-10.6)
[2018-04-10 07:24] LABS: HGB 9.5 gm/dL (11.4-16.0)
[2018-04-10] MEDS: HYDROcodone/APAP 5-325MG 1 EACH TAB PO PRN (07:58)
[2018-04-10] MEDS: ASPIRIN 325 MG TAB PO SCH (08:05)
[2018-04-10] MEDS: PANTOPRAZOLE 40 MG TABLET PO SCH (08:06)
[2018-04-10] MEDS: CHOLECALCIFEROL 1,000 UNIT TAB PO SCH (08:06)
--- NOTE | 2018-04-10 08:30 | P.DS ---
Providers Date of admission: 04/07/18 05:37 Expected date of discharge: 04/10/18 Attending physician: Marlon Connolly Consults: 04/07/18 07:28 Consult Physician Routine Consulting Provider: Tracie Brambila Consult Reason/Comments: medical management Do you want consulting provider notified?: Yes Primary care physician: Tracie Brambila - Discharge Diagnosis(es) (1) Primary osteoarthritis of right hip Current Visit: Yes Status: Acute (2) S/P total hip arthroplasty Current Visit: Yes Status: Acute Hospital Course: This is a 78-year-old female with known history of degenerative arthritis of the right hip. The patient presents for evaluation. After discussion and consideration patient elects to proceed with total hip arthroplasty. The patient is seen preoperatively by Dr. Connolly and medically cleared for surgery by their primary care physician. Patient is admitted to [facility] on 04/07/2018 for total hip arthroplasty. The procedures performed without complication or sequelae. The patient is doing well postoperatively. Labs and vital signs are stable on day of discharge. On day of discharge patient's hip incision is healing well. There is minimal erythema. There is no drainage noted at this time. There is minimal soft tissue swelling to the hip and thigh. Patient has full foot and ankle motion without difficulty or pain. Neurovascular status to the right lower extremity is intact. Patient is discharged to rehab in good condition. Please see med rec for accurate list of home medications. Plan - Discharge Summary Discharge Rx Participant: Yes New Discharge Prescriptions: New Aspirin 325 mg PO BID #60 tab HYDROcodone/APAP 5-325MG [[place] 5-325] 1 - 2 tab PO Q4-6H PRN #90 tab PRN Reason: Pain Sennosides [Senokot] 1 tab PO BID #60 tablet No Action amLODIPine BESYLATE [Norvasc] 5 mg PO BID Levothyroxine Sodium [Synthroid] 75 mcg PO DAILY Omeprazole 20 mg PO DAILY Pravastatin Sodium [Pravachol] 40 mg PO HS ALPRAZolam [Xanax] 0.5 mg PO HS PRN PRN Reason: Insomnia Cholecalciferol [Vitamin D3] 1,000 unit PO DAILY Losartan/Hydrochlorothiazide [Losartan-Hctz 100-25 mg Tab] 1 tab PO DAILY Aspirin [Adult Low Dose Aspirin EC] 81 mg PO DAILY HYDROcodone/APAP 5-325MG [[place] 5-325] 1 tab PO Q4HR PRN PRN Reason: Pain Discharge Medication List ALPRAZolam [Xanax] 0.5 mg PO HS PRN 01/09/17 [History] Aspirin [Adult Low Dose Aspirin EC] 81 mg PO DAILY 01/09/17 [History] Cholecalciferol [Vitamin D3] 1,000 unit PO DAILY 01/09/17 [History] Levothyroxine Sodium [Synthroid] 75 mcg PO DAILY 01/09/17 [History] Losartan/Hydrochlorothiazide [Losartan-Hctz 100-25 mg Tab] 1 tab PO DAILY [History] Omeprazole 20 mg PO DAILY 01/09/17 [History] Pravastatin Sodium [Pravachol] 40 mg PO HS 01/09/17 [History] amLODIPine BESYLATE [Norvasc] 5 mg PO BID 01/09/17 [History] HYDROcodone/APAP 5-325MG [[place] 5-325] 1 tab PO Q4HR PRN 03/25/18 [History] Aspirin 325 mg PO BID #60 tab 04/10/18 [Rx] HYDROcodone/APAP 5-325MG [[place] 5-325] 1 - 2 tab PO Q4-6H PRN #90 tab 04/10/18 [ Rx] Sennosides [Senokot] 1 tab PO BID #60 tablet 04/10/18 [Rx] Follow up Appointment(s)/Referral(s): Tracie Brambila MD [Primary Care Provider] - 04/18/18 11:00 am Marlon Connolly DO [Doctor of Osteopathic Medicine] - 04/21/18 1:30 pm Activity/Diet/Wound Care/Special Instructions: Weightbearing as tolerated with walker Leave dressing intact. Dressing may be removed by home care nurse in 10 days. May shower with dressing on. Follow-up with [facility] in 2 weeks, please call with any questions or concerns [phone] Discharge Disposition: TRANSFER TO SNF/ECF
[2018-04-10] MEDS: MELOXICAM 7.5 MG TAB PO SCH (08:57)
[2018-04-10 13:40] VITALS: BP 136/78; PULSE 78; RESP 16; TEMP 97.8
--- NOTE | 2018-04-10 13:51 | P.PN ---
Subjective Progress Note Date: 04/10/18 this is an 78-year-old female patient of Dr. Brambila. Patient has a significant history of osteoarthritis of the right hip and underwent a right total hip arthroplasty with a direct anterior approach with Dr. Connolly today. Patient has a significant history of left breast cancer with chemo and radiation 15 years ago, GERD, hyperlipidemia, hypertension, osteoarthritis and thyroid disorder. Patient is currently resting comfortably in bed with minimal pain complaints at this time. Blood pressure currently running on the lower side with Systolic blood pressure in t the 90s and low 100s . Patient currently on room air with no completes the shortness of breath. Patient denies any chest pain. She denies any urinary symptoms, fever, chills, nausea, vomiting or diarrhea at this time. Med rec reviewed with patient. Will hold blood pressure medications at this time due to low blood pressure. On 04/08/2018 patient currently up in chair. States that she did have some pain throughout the night but was managed well on the pain medication provided. She denies chest pain or shortness of breath at this time. Denies nausea vomiting diarrhea On 04/09/2018 patient is currently sitting comfortably in bed. Patient denies any shortness of breath or pain at this time. Urinary analysis did show moderate leukocyte Estrace and patient did state that a couple of weeks prior she did get treated for UTI. She did state she completed antibiotic dose. Patient denies any urinary pain or urinary urgency at this time. Urine Culture has been ordered. Patient is also having low-grade temps 99.3. White Blood cell was 11.2 yesterday. 04/10/2018 patient sitting up in bedside chair. Pain is controlled. Denies any chest pain or shortness of breath. Denies any urinary symptoms. Urinalysis is showing evidence of a UTI. Patient reports taking a short 3 day course of antibiotic outpatient for UTI. Urinalysis is still showing evidence of infection. Urine cultures pending. She'll be discharged with Ceftin for 5 more days. White count has normalized. And she is afebrile. Patient was tachycardic this morning likely pain related. The pain medication given this morning EKG showing a normal sinus rhythm with PVCs and PACs repeat vitals was a heart rate of 72 and blood pressure 124/58. Patient also anemic with a hemoglobin of 9.5 and will be placed on iron supplement. Objective - Vital Signs Vital signs: Vital Signs Temp 97.8 F 04/10/18 13:40 Pulse 78 04/10/18 13:40 Resp 16 04/10/18 13:40 BP 136/78 04/10/18 13:40 Pulse Ox 97 04/10/18 13:40 Intake & Output 04/09/18 04/10/18 04/10/18 18:59 06:59 18:59 Intake Total 240 1180 Output Total 1 Balance 240 1179 Intake: Oral 240 1180 Output: Stool 1 Other: Voiding Method Toilet # Voids 3 2 # Bowel Movements 0 - Exam Head normocephalic Neck supple Lungs clear to auscultation bilaterally no wheezing or crackles Heart regular rate and rhythm S1-S2, no rub or gallop Abdomen is soft nontender nondistended positive bowel sounds no hepatosplenomegaly Extremities no edema Neuro alert and orientated to 3 - Labs CBC & Chem 7: 04/10/18 06:33 04/10/18 06:33 Labs: Abnormal Lab Results - Last 24 Hours (Table) 04/10/18 04/10/18 Range/Units 06:33 06:33 RBC 3.04 L (3.80-5.40) m/uL Hgb 9.5 L D (11.4-16.0) gm/dL Hct 29.0 L (34.0-46.0) % Sodium 135 L (137-145) mmol/L Microbiology - Last 24 Hours (Table) 04/09/18 15:45 Urine Culture - Preliminary Urine,Clean Catch Assessment and Plan Assessment: 1. Severe osteoarthritis the right hip. Status post right total hip arthroplasty with a direct anterior approach with Dr. Connolly. Currently on aspirin 325 mg by mouth twice a day per surgical services. Pain management with [place] and Dilaudid. 2. History of breast cancer 3. History of hypothyroidism. Home medication resumed 4. History of essential hypertension. Blood pressure has been on the lower side. Blood pressure pills have been on hold during this admission. Patient has had weight loss likely related to the recent loss of her . She is no longer requiring all of the blood pressure medications. The losartan and hydrochlorothiazide medication will be discontinued and Norvasc will be decreased to 5 mg daily 5. History of hyperlipidemia. Home medication Pravastatin resumed 6. Leukocytosis. WBC 11.1. Resolved. Likely reactive from surgery or remaining urinary tract infection. 7. UTI: Urine culture pending. Patient completed only a short course of antibiotic outpatient. We'll continue 5 day course of Ceftin to finish up treatment for UTI. 8. Sinus tachycardia likely pain related. Heart rate has improved after pain medication. Heart rate now 72 Patient is medically stable for discharge. She'll be discharged to [facility]. Dr. Brambila to follow at [facility] I performed an examination of the patient and discussed their management with the physician Delivery Crew Member. I have reviewed the Physician Delivery Crew Member's notes and agree with the documented findings and plan of care
[2018-04-10] MEDS ORDERED: cefTRIAXone IN SWFI 1,000 MG/10 ML SYRINGE IVP SCH (14:00)
== END 2018-04-10 14:50 | DRG 470 ==
LOC: 2ORMAIN 05:37 → 3SUR 09:36
PROVIDERS: ADMIT Orthopaedic Surgery; ATTEND Orthopaedic Surgery
PROC: 0SR906A Replacement of Right Hip Joint with Oxidized Zirconium on Polyethylene Synthetic Substitute, Uncemented, Open Approach (ICD-10-PCS; principal; 2018-04-07 07:30)
DX: M16.11 Unilateral primary osteoarthritis, right hip (principal); N39.0 Urinary tract infection, site not specified; D62 Acute posthemorrhagic anemia; E03.9 Hypothyroidism, unspecified; E78.5 Hyperlipidemia, unspecified; E87.5 Hyperkalemia; E87.6 Hypokalemia; I10 Essential (primary) hypertension; I49.3 Ventricular premature depolarization; K21.9 Gastro-esophageal reflux disease without esophagitis; Z79.82 Long term (current) use of aspirin; Z79.899 Other long term (current) drug therapy; Z85.3 Personal history of malignant neoplasm of breast; Z92.21 Personal history of antineoplastic chemotherapy; Z92.3 Personal history of irradiation; M54.9 Dorsalgia, unspecified; Z96.612 Presence of left artificial shoulder joint; R00.0 Tachycardia, unspecified; Z79.890 Hormone replacement therapy
CPT/HCPCS: 36415; 73501; 80048; 81001; 84132; 85025; 86850; 86891; 86900; 86901; 87086; 88300; 93005

== ENCOUNTER → 2018-11-12 | Outpatient (CLI) | payer MEDICARE, BC ==
[~2018-11-12] MED LIST changes: -ACETAMINOPHEN TAB 500 MG TAB PO ONE; +DENOSUMAB 60 MG/ML 1 ML SYRINGE SQ ONE; -MELOXICAM 7.5 MG TAB PO ONE; -MIDAZOLAM 2 MG/2 ML VIAL IV PRN; -ONDANSETRON 4 MG/2 ML VIAL IVP ONE; -TRANEXAMIC ACID 1,000 MG in SODIUM CHLORIDE 0.9% 50 ML IVPB ONE; -ceFAZolin IN SWFI 2 GM/20 ML SYRINGE IVP ONE; -fentaNYL (PF) 50 MCG/ML 2 ML AMP IV PRN
[2018-11-12 15:27] VITALS: BP 164/78; PULSE 87; RESP 16; TEMP 97.9
== END | disposition home or self-care (01) ==
LOC: PROCWHC3 14:46
PROVIDERS: ATTEND Internal Medicine
DX: M81.0 Age-related osteoporosis without current pathological fracture (principal)
CPT/HCPCS: 96372; J0897

== ENCOUNTER → 2021-10-27 | Outpatient (CLI) | payer MEDICARE, BC ==
--- NOTE | 2021-10-27 16:03 | NM ---
EXAMINATION TYPE: NM bone scan whole body DATE OF EXAM: 10/27/2021 COMPARISON: NONE HISTORY: Breast cancer Delayed whole-body scanning was performed following the injection of 17.3 mCi Tc 99m MDP. Images wer e acquired 3 hours post injection. FINDINGS: Small amount of radiotracer accumulation is at the first metatarsophalangeal joint space of the left foot. 2. Mild degree some minimal may be at the right first metatarsophalangeal joint space. Findings are l ikely related to degenerative changes. Note is made of a right hip prosthesis. Some uptake may be postsurgical nature at the greater trochan ter on the right adjacent to the prosthesis. There is some focal uptake within the posterior right scoliotic lumbar spine at what appears to be th e L2 level. This is nonspecific but could be related to degenerative change. Uptake is at the glenohumeral junction predominantly within the glenoid of the left scapula. There is some uptake within the left sacral alar. These 2 areas are nonspecific. Consider plain film correlat ion for metastasis. There is some uptake within the posterior left L5-S1 facet region which could be degenerative in natu re. Metastatic disease at this level is not excluded. IMPRESSION: 1. Findings are not specific but potentially could be related to metastasis at the left glenoid, the posterior left sacral alar, and possibly the posterior left L5 pedicle region. Plain film correlation is recommended. 2. Additional radiotracer accumulation appears to be related to degenerative change.
== END | disposition home or self-care (01) ==
LOC: RADNMMAIN 10:48
PROVIDERS: ATTEND Internal Medicine Hematology & Oncology
DX: C50.919 Malignant neoplasm of unspecified site of unspecified female breast (principal); M54.00 Panniculitis affecting regions of neck and back, site unspecified
CPT/HCPCS: 78306; A9503

== ENCOUNTER → 2021-11-01 | Outpatient (CLI) | payer MEDICARE, BC ==
--- NOTE | 2021-11-01 16:11 | CT ---
EXAMINATION TYPE: CT ChestAbdPelvis wo con DATE OF EXAM: 11/01/2021 COMPARISON: Correlation nuclear medicine whole body bone scan 10/27/2021 HISTORY: 81-year-old female Leg pain, history of breast cancer. R68.89, M54.0. TECHNIQUE: Contiguous axial scanning of the chest, abdomen, and pelvis without IV contrast. Coronal a nd sagittal reconstructions performed. The technologist notes that the patient has an allergy to iodi nated contrast allergy. CT DLP: 571 mGycm Automated exposure control for dose reduction was used. FINDINGS: CHEST: Heterogeneous nodule of the left adrenal gland measuring at least 2.3 cm. Dedicated thyroid ultrasoun d evaluation is recommended. Mild generalized anasarca change. Postsurgical change posterior superior left breast and left axillary timo dissection. Heart normal size without pericardial effusion. Mild LAD coronary artery calcifications. Aorta normal caliber without mild atherosclerotic arch calcifications and conventional arch vessel br anching anatomy. No thoracic lymphadenopathy identified. There is a trace to small left pleural effusion. Volume loss and consolidation medial left upper lobe along with biapical pleural parenchymal scarring . Subpleural reticulations anterior left wall midlung suggests radiation therapy changes. Small 3 mm calcified granuloma posterior right upper lobe, axial image 15. ABDOMEN: Noncontrast appearance of the liver, gallbladder, left kidney, and atrophic pancreas show no gross ab normality. A couple cortical hypodensities within the right kidney measuring 1.8 cm and 9 mm likely benign corti mignon cysts. Cbxs-pl-[id number] atherosclerotic calcifications abdominal aorta. Possible significant atherosclerotic stenoses at the origin of the celiac access and SMA. No dilated small bowel, free fluid, or free air. Redundant transverse colon. Moderate stool burden. R edundant sigmoid colon. No pericolonic inflammatory change seen. No mesenteric or retroperitoneal lymphadenopathy identified. PELVIS: Streak and beam hardening artifact from the patient's right hip total arthroplasty limits visualizati on of pelvic structures. Bladder under distended. Uterus appears surgically absent. Possible visualiz ation of bilateral small ovaries. Multiple pelvic phlebolith. There is pelvic floor relaxation with b ulging laxity of the levator ani musculature. No abnormal fluid collection in the pelvis. No pelvic l ymphadenopathy identified. BONES: Osteopenia. Radiotracer arthroplasty. Mild degenerative changes left hip. Large destructive soft tissue lesion left sacral alar measuring at least 5.1 cm on coronal image 49. This invades into the left S1-S2 neuroforamen effacing the nerve root. Disc herniation at L5-S1 may contribute to a moderate to severe focal spinal canal stenosis. IMPRESSION: 1. 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 2. STATUS POST LEFT BREAST LUMPECTOMY AND LEFT EXTRARENAL DISSECTION. UNDERLYING POSTRADIATION THERAP Y CHANGES IN THE LEFT LUNG. 3. MILD GENERALIZED ANASARCA CHANGE AND A SMALL LEFT PLEURAL EFFUSION. CORRELATE FOR THIRD SPACING OR FLUID OVERLOAD STATE.
== END | disposition home or self-care (01) ==
LOC: RADCTMAIN 12:44
PROVIDERS: ATTEND Internal Medicine Hematology & Oncology
DX: J90 Pleural effusion, not elsewhere classified (principal); I77.73 Dissection of renal artery; R60.1 Generalized edema; M79.89 Other specified soft tissue disorders; Z85.3 Personal history of malignant neoplasm of breast
CPT/HCPCS: 71250; 74176

== ENCOUNTER 2021-11-16 09:35 | Day surgery (SDC) | payer MEDICARE, BC ==
[2021-11-16 10:13] VITALS: RESP 16; TEMP 98.1
[2021-11-16] MEDS ORDERED: ALPRAZolam 0.25 MG TAB PO STA (10:15)
[2021-11-16 10:21] LABS: Mean Platelet Volume 8.9; Platelet Count 193 k/uL (150-450)
[2021-11-16 10:26] LABS: Prothrombin Time 10.7 sec (9.0-12.0)
--- NOTE | 2021-11-16 11:50 | CT ---
EXAMINATION TYPE: CT biopsy subcut tissue DATE OF EXAM: 11/16/2021 COMPARISON: 11/01/2021 HISTORY: Left sacral mass CT DLP: 208 mGycm The procedure is discussed with the patient, the risks, complications, benefits and alternatives, wer e discussed and any questions were answered. Informed consent was obtained. The patient is placed p stevie on the CT table, prepped and draped in the usual sterile fashion. Utilizing a 18-gauge core biopsy needle access into the left sacral mass was achieved with 2 passes p erformed. Pathology pending. All elements of maximal barrier technique were utilized. The patient remained stable throughout the procedure with no immediate postprocedural complication. IMPRESSION: 1. Successful CT guided core biopsy of a left sacral mass
[2021-11-16 12:07] VITALS: BP 150/73; PULSE 81
== END 2021-11-16 12:05 | disposition home or self-care (01) ==
LOC: RADPROMAIN 09:35
PROVIDERS: ATTEND Internal Medicine Hematology & Oncology
DX: C79.51 Secondary malignant neoplasm of bone (principal); C50.412 Malignant neoplasm of upper-outer quadrant of left female breast; I10 Essential (primary) hypertension; E78.5 Hyperlipidemia, unspecified; M51.36 Other intervertebral disc degeneration, lumbar region; K52.9 Noninfective gastroenteritis and colitis, unspecified; Z96.641 Presence of right artificial hip joint; Z90.710 Acquired absence of both cervix and uterus; Z90.49 Acquired absence of other specified parts of digestive tract; Z98.890 Other specified postprocedural states; Z80.8 Family history of malignant neoplasm of other organs or systems; Z86.19 Personal history of other infectious and parasitic diseases; Z79.82 Long term (current) use of aspirin; Z79.890 Hormone replacement therapy; Z79.899 Other long term (current) drug therapy; Z88.1 Allergy status to other antibiotic agents; Z91.048 Other nonmedicinal substance allergy status
CPT/HCPCS: 20225; 36415; 77012; 85049; 85610; 88305; 88341; 88342

== ENCOUNTER → 2022-01-05 | Outpatient (CLI) | payer MEDICARE, BC ==
--- NOTE | 2022-01-07 21:33 | MR ---
EXAMINATION TYPE: MR brain wo/w con DATE OF EXAM: 01/05/2022 COMPARISON: NONE HISTORY: Nausea, dizziness, thyroid gland cancer TECHNIQUE: Multiplanar, multisequence images of the brain and brainstem is performed without and with IV contras t, utilizing 4 mL intravenous Gadavist . FINDINGS: Diffusion weighted images demonstrate no evidence of a recent infarct or other diffusion ab normality. There is mild to moderate ventricular and sulcal prominence. Scattered focal and confluen t areas of T2 hyperintensity are seen throughout the white matter bilaterally. Lesions are nonspecifi c in appearance and distribution. Midline structures demonstrate normal morphology. The craniocervical junction appears within normal limits. Post contrast images demonstrate no abnormal enhancement or enhancing masses. The dural veno us sinuses appear patent. The visualized sinuses are clear and the globes are intact. Nasal septum is deviated to right of midline. No suspicious opacification of the mastoid air cells. IMPRESSION: Mild to moderate diffuse cerebral atrophy and moderate to severe chronic small vessel isc hemic change. No suspicious enhancement or enhancing masses.
== END | disposition home or self-care (01) ==
LOC: RADMRIMAIN 19:02
PROVIDERS: ATTEND Internal Medicine Hematology & Oncology
DX: C73 Malignant neoplasm of thyroid gland (principal); I67.82 Cerebral ischemia; G31.9 Degenerative disease of nervous system, unspecified
CPT/HCPCS: 70553; A9585

== ENCOUNTER → 2022-11-01 | Outpatient (CLI) | payer MEDICARE, BC ==
--- NOTE | 2022-11-01 16:16 | NM ---
EXAMINATION TYPE: NM bone scan whole body DATE OF EXAM: 11/01/2022 COMPARISON: Prior whole body CT November 01, 2021. Prior bone scan October 27, 2021 HISTORY: Bone metastases per order. History of breast cancer 22 years ago and thyroid cancer 1 year a go. Delayed whole-body scanning was performed following the injection of 21.6 mCi Tc 99m MDP. Images acq uired 3 hours post injection. FINDINGS: There is persistent S-shaped scoliosis involving the thoracolumbar spine. Mild uptake in th e lumbar spine is favored degenerative. No new suspicious scintigraphic uptake to suggest metastatic disease to the bone. There is lytic destructive lesion left sacrum on prior CT not as wel l-seen on bone scan due to lytic lesion. Lucency from right hip prosthesis is redemonstrated. Normal excretion is present. IMPRESSION: As above.
== END | disposition home or self-care (01) ==
LOC: RADNMMAIN 10:21
PROVIDERS: ATTEND Internal Medicine Hematology & Oncology
DX: C73 Malignant neoplasm of thyroid gland (principal); C79.51 Secondary malignant neoplasm of bone; Z85.3 Personal history of malignant neoplasm of breast
CPT/HCPCS: 78306; A9503

== ENCOUNTER → 2023-03-14 | Outpatient (CLI) | payer MEDICARE, BC ==
--- NOTE | 2023-03-14 14:08 | CT ---
EXAMINATION TYPE: CT pelvis wo con CT DLP: 200.5 mGycm, Automated exposure control for dose reduction was used. DATE OF EXAM: 03/14/2023 1:44 PM COMPARISON: CT chest abdomen pelvis 11/01/2021, nuclear medicine bone scan 11/01/2022. CLINICAL INDICATION:Female, 83 years old with history of C79.51 bone mets; Sacral pain. History of th yroid cancer with mets. TECHNIQUE: Standard CT of the pelvis without IV or oral contrast. Lack of IV or oral contrast limit s evaluation of solid and hollow organ viscera. Coronal and sagittal reformats were performed. FINDINGS: LIVER: Unremarkable noncontrast appearance involving the visualized portion. BLADDER: Limited evaluation due to streak artifact from hip prosthesis. REPRODUCTIVE: The uterus is surgically absent. BOWEL: No focal wall thickening or surrounding inflammatory changes. No evidence of bowel obstruction . PERITONEUM: No evidence of pneumoperitoneum or free fluid. VASCULATURE: Atherosclerotic calcification. Multiple pelvic phleboliths. MUSCULOSKELETAL: Redemonstration of large destructive left hemisacral soft tissue lesion measuring up to 4.4 cm. No new lesions visualized. No acute osseous abnormalities. Postsurgical changes from righ t total arthroplasty. This creates streak artifact limiting evaluation. Diffuse bone demineralization . LYMPH NODES: No gross evidence for lymphadenopathy. SOFT TISSUE/ABDOMINAL WALL: Unremarkable IMPRESSION: Redemonstration of destructive soft tissue lesion involving the left hemisacrum. No other significant abnormality identified within the pelvis.
== END | disposition home or self-care (01) ==
LOC: RADCTMAIN 13:29
PROVIDERS: ATTEND Internal Medicine Hematology & Oncology
DX: C50.412 Malignant neoplasm of upper-outer quadrant of left female breast (principal); C73 Malignant neoplasm of thyroid gland; C79.51 Secondary malignant neoplasm of bone
CPT/HCPCS: 72192

== ENCOUNTER → 2023-06-15 | Outpatient (CLI) | payer MEDICARE, BC ==
--- NOTE | 2023-06-15 13:57 | MR ---
EXAMINATION TYPE: MR brain wo con DATE OF EXAM: 06/15/2023 COMPARISON: Prior MRI brain January 05, 2022 HISTORY: Hx of breast and thyroid cancer. Dizziness, Recurrent falls TECHNIQUE: Multiplanar, multisequence imaging of the brain and brainstem is performed without IV cont rast. FINDINGS: Diffusion weighted images demonstrate no evidence of a recent infarct or other diffusion abnormality. There is moderate ventricular and sulcal prominence. There is focal and confluent areas of T2 hyperin tensity seen throughout the white matter bilaterally redemonstrated. Midline structures redemonstrate normal morphology. The craniocervical junction remains within daniel l limits. Normal vascular flow voids are present. No suspicious new opacification of mastoid air cell s. The visualized sinuses are clear. Bilateral aphakia redemonstrated.. IMPRESSION: 1. No MRI evidence for a recent infarct. 2. Moderate diffuse cerebral atrophy and chronic small vessel ischemic changes redemonstrated. No sig nificant change from most recent MRI.
== END | disposition home or self-care (01) ==
LOC: RADMRIMAIN 12:26
PROVIDERS: ATTEND Internal Medicine Hematology & Oncology
DX: C73 Malignant neoplasm of thyroid gland (principal); C50.412 Malignant neoplasm of upper-outer quadrant of left female breast; R42 Dizziness and giddiness; G31.9 Degenerative disease of nervous system, unspecified; R29.6 Repeated falls; I67.82 Cerebral ischemia; Z85.850 Personal history of malignant neoplasm of thyroid
CPT/HCPCS: 70551

== ENCOUNTER → 2024-06-15 | Outpatient (CLI) | payer MEDICARE, BC ==
--- NOTE | 2024-06-15 16:16 | CT ---
EXAMINATION TYPE: CT ChestAbdPelvis wo con DATE OF EXAM: 06/15/2024 COMPARISON: 11/01/2021 HISTORY: Hx of breast, colon, and thyroid Ca. CT DLP: 333.5 mGycm. Automated Exposure Control for Dose Reduction was Utilized. TECHNIQUE: CT scan of the thorax, abdomen and pelvis is performed without IV contrast. FINDINGS: There is mild left upper lobe atelectasis with mild volume loss on the left. There is no suspicious m ass or nodule. There is no airspace consolidation or abnormal interstitial density. There is no pleural effusion or pneumothorax. The great vessels the chest are normal and there is no mediastinal, axillary or hilar adenopathy. No focal osseous lesions are seen. There is reverse left shoulder prosthesis CT abdomen and pelvis: Gallbladder is normal and there is no gallstone, wall thickening, pericholecystic fluid or distention . There is no biliary ductal dilatation. There is no organomegaly of the liver, pancreas, spleen or adrenal glands. There are no renal calcifications or hydronephrosis. The caliber of the abdominal aorta is normal and there is no retroperitoneal adenopathy or hemorrhage . The bowel loops are normal in caliber is no evidence of obstruction. No inflammatory changes are iden tified in the mesentery and there is no free intraperitoneal air or fluid. There is no pelvic mass, free fluid, abscess or adenopathy. There is destructive 4.0 x 4.0 cm destructive soft tissue mass in the left sacral ala consistent with metastatic disease. It is essentially unchanged in size. There is a right hip prosthesis IMPRESSION: Large essentially stable destructive soft tissue mass in the left sacral ala consistent with metastat ic disease. No other new or significant abnormality seen. [facility], , 06/15/2024 4:14 PM
== END | disposition home or self-care (01) ==
LOC: RADCTMAIN 14:43
PROVIDERS: ATTEND Internal Medicine Hematology & Oncology
DX: C50.412 Malignant neoplasm of upper-outer quadrant of left female breast
CPT/HCPCS: 71250; 74176

== ENCOUNTER → 2024-08-12 | Outpatient (CLI) | payer MEDICARE, BC ==
--- NOTE | 2024-08-12 16:10 | US ---
EXAMINATION TYPE: US thyroid st tissue head/neck DATE OF EXAM: 08/12/2024 COMPARISON: NONE CLINICAL INDICATION: Female, 84 years old with history of C73 THYROID CANCER; Hx thyroid cancer with Mets to sacrum TECHNIQUE: Grayscale and color Doppler imaging of the thyroid gland. FINDINGS: GLAND SIZE: Right Lobe: Surgically absent Left Lobe: Surgically absent NODULES RIGHT: # of nodules measured on right: 0 ISTHMUS: # of nodules measured in the isthmus: 0 Bilateral neck scanned, no evidence of lymphadenopathy. IMPRESSION: Surgically absent thyroid gland without evidence for residual tissue or lymphadenopathy. [facility], , 08/12/2024 4:08 PM
== END | disposition home or self-care (01) ==
LOC: RADUSWWP 13:24
PROVIDERS: ATTEND Internal Medicine Endocrinology, Diabetes & Metabolism
DX: C73 Malignant neoplasm of thyroid gland (principal); Z85.850 Personal history of malignant neoplasm of thyroid
CPT/HCPCS: 76536

== ENCOUNTER → 2025-01-07 | Outpatient (CLI) | payer MEDICARE, BC ==
--- NOTE | 2025-01-07 16:03 | CT ---
EXAMINATION TYPE: CT ChestAbdPelvis wo con DATE OF EXAM: 01/07/2025 COMPARISON: 06/15/2024 CLINICAL INDICATION: Female, 84 years old with history of C50.412, C79.51; PHH, f/u breast ca with me ts TECHNIQUE: CT scan of the thorax, abdomen and pelvis is performed without IV contrast. CT DLP: 283.[address] CTDI: mGy Automated exposure control for dose reduction was used. FINDINGS: CT chest: There is mild pleural-parenchymal scarring in the apices there is mild atelectasis in the left upper lobe. There are 2 stable sub-4 mm nodules in the right lung one in the middle lobe and the other in the low er lobe. There is mild interstitial scarring or fibrosis in the lingula There is no airspace consolidation There is no pleural effusion or pneumothorax.There is mild pleural thickening in the left lung base The great vessels and chest are normal there is no mediastinal, hilar or axillary adenopathy. No focal osseous lesions are seen. CT abdomen and pelvis: Gallbladder is normal without distention, pericholecystic fluid, wall thickening or gallstone. There is no biliary ductal dilatation. There is no focal mass or organomegaly involving the liver, pancreas, spleen or adrenal glands.. There is no solid renal mass or hydronephrosis. There is no retroperitoneal adenopathy or hemorrhage in the caliber of the abdominal aorta is normal. The bowel loops are normal in caliber and there is no dilatation or obstruction. No inflammatory webster ges identified in the bowel wall and mesentery. There is no free intracranial air or fluid. There is no pelvic mass or adenopathy. There is no free fluid within the pelvis. There is a stable 4.2 x 4.0 cm destructive mass of the left sacrum. Cm destructive metastatic lesion in the left sacrum IMPRESSION: 1. No evidence of metastatic disease in the thorax. 2. Essentially stable destructive metastatic lesion of the left sacral ala. 3. Marked atrophy of the paraspinal musculature within the lumbar region. 4. No new abnormality seen.. [facility], , 01/07/2025 4:01 PM
== END | disposition home or self-care (01) ==
LOC: RADCTMAIN 13:57
PROVIDERS: ATTEND Internal Medicine Hematology & Oncology
DX: C50.412 Malignant neoplasm of upper-outer quadrant of left female breast (principal); C79.51 Secondary malignant neoplasm of bone; C73 Malignant neoplasm of thyroid gland; M53.3 Sacrococcygeal disorders, not elsewhere classified; M62.50 Muscle wasting and atrophy, not elsewhere classified, unspecified site
CPT/HCPCS: 71250; 74176